=== PATIENT | male | born 1975 | race Caucasian/White ===

== ENCOUNTER 2023-12-18 09:08 | Emergency (ER) | payer SELFPAY ==
[2023-12-18 09:15] VITALS: BP 138/99
[2023-12-18 09:50] VITALS: BMI 32.4
--- NOTE | 2023-12-18 10:13 | ED.GENMED ---
Addendum entered and electronically signed by Wm Minor PA-C 12/20/23 08:41:
Pulmonary Lyme test presumptively positive. Sent prescription for the cyclin 100 mg twice a day for 3 weeks to his pharmacy. Relayed this information to the patient.
Original Note:
History of Present Illness
General
Chief Complaint: Facial Problem
Source: patient
Time Seen by Provider: 12/18/23 10:03
History of Present Illness
History of Present Illness:
48-year-old male presents with a weeks worth of progressively worsening numbness and dysfunction to the left side of his face. He notes he can close his eye raise his eyebrow. He feels that his left side of his face is numb. This was preceded by
little behind the ear. He denies rash. He denies any tick bites. No fever or headache. No arm or leg dysfunction. No other complaints at this time
Past History
Past History
ED Past Medical History: Psychiatric; Negative Asthma, HTN, Hypercholesterolemia or NIDDM
ED Past Surgical History: Other ([place] teeth)
Social History
Tobacco: Smoker
Alcohol: Occasional
Drug: Marijuana (Occasionally)
Personal:
Living: with family
Employment: Employed (Construction)
Family History
Family History: Other (Noncontributory)
Phy Exam
Physical Exam
Physical Exam:
General: Well-appearing male no acute respiratory distress
HEENT: Normocephalic face is asymmetric. There is a left facial droop. He is unable to wrinkle the forehead on the left nor is he able to close the eye on the left. Pupils equal round reactive to light tongue is symmetric no rash noted
Neurologic exam: As above normal gait conversing appropriately good strength to the upper and lower extremities
Heart: Regular rate and rhythm no murmurs
Lungs: Clear no wheeze
Skin is warm no rash
Course
Orders/Labs/Results
Orders:
Orders
12/18/23 10:16
Prednisone [Deltasone] 50 mg PO NOW STA
12/18/23 10:45
Complete Blood Count/With Diff Urgent
Comprehensive Metabolic Panel Urgent
Lyme Progressive Urgent
Abnormal Lab Results
12/18/23
10:45
MCH 31.4 H pg
(27.0-31.0)
MPV 10.5 H fL
(7.4-10.4)
Absolute Monos (auto) 0.7 H 10^3/uL
(0.1-0.6)
Lymphocytes % 20.0 L %
(20.5-51.1)
Glucose 113 H mg/dl
(70-99)
ALT 57 H U/L
(0-50)
12/18/23 10:45
12/18/23 10:45
Vital Signs
Initial and Last Documented VS:
Initial Vital Signs
Temp Pulse Resp BP Pulse Ox
98.7 F 73 18 138/99 96
12/18/23 09:15 12/18/23 09:15 12/18/23 09:15 12/18/23 09:15 12/18/23 09:15
Last Documented Vital Signs
Temp Pulse Resp BP Pulse Ox
98.7 F 73 18 138/99 96
12/18/23 09:15 12/18/23 09:15 12/18/23 09:15 12/18/23 09:15 12/18/23 09:15
MDM/Problems Addressed
Differential Diagnosis Includes:
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 Do not suspect CVA. Considered imaging but not indicated at this time. Will check for Lyme. Check basic labs. Will start on steroids and antiviral medicines pending Lyme
titer. Recommend rewetting drops as well.
*Critical Care Note
Total Time (30-74mins, 75-104mins- exclusive of procedures): Not Applicable
Update Note
Update Note:
Labs reviewed without significant finding. Will treat with antiviral medicine and prednisone to treat Larson's palsy. Lyme test is pending.
ED Attending Note
-
Portions of this chart may have been created with voice recognition software.� Occasional wrong word or��sound alike� substitutions may have occurred due to the inherent limitations of voice recognition software.
Discharge Plan
Departure
Patient Disposition: Home (Routine Discharge)
Date of Disposition: 12/18/23
Time of Disposition: 11:47
Patient with high blood pressure during this ER visit?: No
Discharge Problem:
Larson's palsy
Instructions: Larson's Palsy (DC)
Prescriptions:
New
valacyclovir [Valtrex] 1 gram tablet
1,000 mg PO Q8H Qty: 21 0RF
prednisone 20 mg tablet
60 mg PO DAILY Qty: 21 0RF
No Action
ibuprofen 200 MG tablet
1,000 mg PO ONCE
hydrocodone-acetaminophen [Drasco] 1 EACH tablet
1 ea PO Q4HPRN PRN (Reason: pain) Qty: 15 0RF
Referrals:
Jose Camacho I., DO [Family Provider] -
Activity Restrictions/Additional Instructions:
Use rewetting drops [id number] to keep your eye moist. Take steroid as directed. Use antiviral medicine as directed. You should receive a call if your Lyme test is positive.
Interventions
Interventions:
*Risk Screen - Suicide Last Done: 12/18/23 09:15
*General Assessment Last Done: 12/18/23 09:15
*Neglect/Abuse Screening Last Done: 12/18/23 09:15
ED- Fall Risk Assessment Last Done: 12/18/23 09:53
*ED COVID-19 Vaccine History Last Done: 12/18/23 09:53
ED- Neurological Assessment Last Done: 12/18/23 09:53
ED-Skin Assessment Last Done: 12/18/23 09:53
Discharge Date and Time
Print Language: ITALIAN
[2023-12-18] MEDS: DELTASONE 50 MG PO (10:39)
[2023-12-18 10:58] LABS: % Basophils 0.8 % (0-2); % Eosinophils 1.8 % (0-6); % Immature Granulocytes 0.4 % (0-0.5); % Monocytes 8.1 % (1.7-9.3); % Neutrophils 68.9 % (42.2-75.2); Absolute Basophils 0.1 10^3/uL (0-0.2); Absolute Eosinophils 0.2 10^3/uL (0-0.7); Absolute Lymphocytes 1.8 10^3/uL (1.2-3.4); Absolute Monocytes 0.7 10^3/uL (0.1-0.6); Absolute Neutrophils 6.2 10^3/uL (1.4-6.5); Hematocrit 44.9 % (39.0-52.0); Hemoglobin 15.4 g/dL (13.0-18.0); Mean Corp Hgb Conc. 34.3 g/dL (33.0-37.0); Mean Corpuscular Hgb 31.4 pg (27.0-31.0); Mean Corpuscular Volume 91.6 fL (80.0-94.0); Mean Platelet Volume 10.5 fL (7.4-10.4); Nucleated Red Blood Cells % 0 % (-); Platelet Count 225 10^3/uL (130-400); Red Cell Dist. Width 13.4 % (11.5-14.5)
[2023-12-18 11:09] LABS: ALT (SGPT) 57 U/L (0-50); AST (SGOT) 51 U/L (17-59); Albumin 4.7 g/dl (3.5-5.0); Alkaline Phosphatase 77 U/L (38-126); Blood Urea Nitrogen 14 mg/dl (9-20); Calcium 9.9 mg/dl (8.4-10.2); Carbon Dioxide 23 mmol/L (22-30); Chloride 106 mmol/L (98-107); Estimated Creatinine Clearance > 125 ml/min; Glucose 113 mg/dl (70-99); Potassium 4.7 mmol/L (3.5-5.1); Sodium 144 mmol/L (135-145); Total Bilirubin 0.7 mg/dl (0.2-1.3); Total Protein 7.5 g/dl (6.3-8.2); eGFR > 60.00
[2023-12-18 12:14] VITALS: BP 136/74
[2023-12-19 15:09] LABS: Lyme Antibody Screen, EIA Presump. Positive (Negative)
[2023-12-22 16:21] LABS: Lyme Ab Western Blot IgG Positive (Negative); Lyme Ab Western Blot IgM Negative (Negative)
== END 2023-12-18 12:17 | disposition home or self-care (01) ==
LOC: EMR 09:08
PROVIDERS: Physician Assistant; EMERGENCY PHYSICIAN Emergency Medicine; FAMILY PHYSICIAN Internal Medicine
DX: G51.0 Bell's palsy (principal); A69.20 Lyme disease, unspecified; F17.200 Nicotine dependence, unspecified, uncomplicated
CPT/HCPCS: 99283; 80053; 85025; 86617; 86618

== ENCOUNTER 2025-03-19 13:21 | Inpatient (IN) | payer OTHER, SELFPAY ==
[2025-03-19 10:05] VITALS: BP 155/97
[2025-03-19 10:40] LABS: Hematocrit 43.8 % (39.0-52.0); Hemoglobin 14.5 g/dL (13.0-18.0); Mean Corp Hgb Conc. 33.1 g/dL (33.0-37.0); Mean Corpuscular Volume 91.6 fL (80.0-94.0); Nucleated Red Blood Cells % 0 % (-); Platelet Count 261 10^3/uL (130-400); Red Cell Dist. Width 13.8 % (11.5-14.5)
[2025-03-19 11:01] LABS: ALT (SGPT) 20 U/L (0-50); AST (SGOT) 20 U/L (17-59); Albumin 4.2 g/dl (3.5-5.0); Alkaline Phosphatase 86 U/L (38-126); Blood Urea Nitrogen 13 mg/dl (9-20); Calcium 9.1 mg/dl (8.4-10.2); Carbon Dioxide 25 mmol/L (22-30); Chloride 104 mmol/L (98-107); Glucose 155 mg/dl (70-99); Potassium 4.7 mmol/L (3.5-5.1); Sodium 136 mmol/L (135-145); Total Protein 7.1 g/dl (6.3-8.2); eGFR > 60.00
--- NOTE | 2025-03-19 11:37 | ED.GENMED ---
History of Present Illness
General
Chief Complaint: Wound Check/Suture Removal
Source: patient
Time Seen by Provider: 03/19/25 10:49
History of Present Illness
History of Present Illness:
49-year-old male who states that a few months ago he had an open area at his right great toe, was on a fishing ship, and jumped into the water. Thereafter, he developed an infection at the right great toe which has been somewhat persistent. He saw
his primary care doctor was prescribed antibiotics which she was compliant with. He then saw the vocational aide who performed cultures. He was not continued on and a. He admits that he did not follow-up with the vocational aide and notes that the area of
infection is not healing. 5 days ago he noticed swelling in the area and last night developed fever and chills associated with a warm feeling of heat at the right great toe. Today he no longer has a fever but notes swelling pain and redness which
is new in the last 5 days. He has persistent drainage from this area. Patient denies other complaints and he is not a diabetic.
Past History
Past History
ED Past Medical History: Psychiatric; Negative Asthma, HTN, Hypercholesterolemia or NIDDM
ED Past Surgical History: Other ([place] teeth)
Social History
Tobacco: Smoker
Alcohol: Occasional
Drug: Marijuana (Occasionally)
Personal:
Living: with family
Employment: Employed (Construction)
Family History
Family History: Other (Noncontributory)
Phy Exam
Physical Exam
Physical Exam:
GENERAL: Alert , in no apparent distress
EYE: pupils equal and reactive
NECK: Supple, no significant adenopathy.
ENT: o/p clr, mmm.
CARDIAC: Regular rate and rhythm .
LUNGS: Clear breath sounds bilaterally, no acute respiratory distress, no wheezes/rales/rhonchi
ABDOMEN: Soft, without focal tenderness, no r/g, no cvat
NEUROLOGICAL: Alert and oriented, no focal neuro deficits
SKIN: Warm and dry, circular open wound noted plantr aspect R great toe that is wet but not actively draining, probed to the level of deep soft tissue but not bone. There is surrounding edema and erythema and warmth extending to the dorsal aspect
of the great toe and to the midfoot area, no crepitus, no blistering
MUSCULOSKELETAL: mild sts edema R foot, well perfused.
PSYCH: Normal and appropriate interaction.
Course
Orders/Labs/Results
Orders:
Orders
03/19/25 10:28
Complete Blood Count/With Diff Urgent
Comprehensive Metabolic Panel Urgent
Glycohemoglobin (HgbA1c) Urgent
03/19/25 11:30
Foot, Right 3 View [CR Foot - Right Min 3 Views] Urgent
Comment:
Reason For Exam: INFECTION, GREAT TOE
03/19/25 11:43
CRP [C-Reactive Protein] Urgent
ESR [Erythrocyte Sed Rate] Urgent
Lactic Acid Q4H
Comment: CANCEL 2nd LACTIC ACID IF 1st LACTIC ACID IS LESS THAN 2
Blood Culture Q30M
MARIA LUISA Source: Blood/Venous
Specimen Description:
Blood Culture Q30M
MARIA LUISA Source: Blood/Venous
Specimen Description:
Wound Culture [Wound/Abscess/Other Culture] Urgent
MARIA LUISA Source: Foot
Specimen Description: Right
Date Specimen was Collected: 03/19/25
Time Specimen was Collected: 11:41
03/19/25 11:56
Piperacillin/Tazo 3.375 Gram [Zosyn] 3.375 gram in 50 ml IV NOW
03/19/25 12:08
Vancomycin [Vancocin] 2,000 mg 0.9% Sodium Chloride 500 ml [Nss] 500 ml IV NOW
03/19/25 12:47
Admit/Transfer Patient As Directed
Co-Sign Provider:
Level of Care: Inpatient admission
Assign to:: Medical/Surgical
Physician / Group: veldand, udaybhanu
Diagnosis: right great toe cellulitis with open callous plantar toe
Reason for Hospitalization: right great toe cellulitis with open callous plantar toe
Expected length of stay greater than two midnights?: Yes
ELOS- Estimated Length of Stay in days: 3
I certify the patient meets the requirements for IP care: Yes
Code Status As Directed
Resuscitation Status: Full Code
03/19/25 12:49
PRN Pain Medication Management As Directed
May give lesser potent ordered pain med per pt: Yes
preference::
Protocol:: Medication orders for pain may be administered in a
manner that supports deferring to patient preference
when the pt is:
- Requesting an ordered lesser potent pain medication.
Least to most potent pain medications are defined
as: acetaminophen < NSAID < tramadol < opioids
(morphine, oxycodone, hydromorphone).
- Requesting a lesser dose of the same medication IF
ORDERED.
- Requesting a less intrusive route of administration
if both routes are prescribed by the provider (PO <
IV).
03/19/25 12:52
Add On- LAB Urgent
Tests Added?: [id number]
03/19/25 13:51
Acetaminophen [Tylenol] 650 mg PO Q4HPRN PRN
VANCOMYCIN Pharmacy to Dose [VANCOCIN Pharmacy to Dose] 1 each Pharmacy To Prepare [Call Pharmacy To Prepare] 0 ml IV PER PROTOCOL
03/19/25 13:51
WOUND/OSTOMY CONSULT Routine
Reason for Consult: right great toe plantar open wound/ cellulitis
Activity As Directed
Activity Level: As Tolerated
Vital Signs As Directed
Frequency: Per unit guidelines
Pt Eval And Treat Routine
Activity Level: As Tolerated
DX Deep Vein Thrombosis Video Routine
03/19/25 Dinner
1800 calorie (15 carb) Diabetic
At Your Request: Full Participation
Does patient need a safe tray?: No
03/19/25 18:00
Enoxaparin Sodium [Lovenox] 40 mg SC QPM
Piperacillin/Tazo 3.375 Gram [Zosyn] 3.375 gram in 50 ml IV Q6H
03/19/25 22:00
Quetiapine Fumarate [Seroquel] 50 mg PO HS
03/20/25 07:48
Complete Blood Count/With Diff IN AM
Comprehensive Metabolic Panel IN AM
03/20/25 08:00
Lamotrigine [Lamictal] 150 mg PO DAILY
Sertraline HCl [Zoloft] 50 mg PO DAILY
03/21/25 07:47
Complete Blood Count/With Diff IN AM
Comprehensive Metabolic Panel IN AM
Abnormal Lab Results
03/19/25 03/19/25
10:28 11:43
Absolute Monos (auto) 0.8 H 10^3/uL
(0.1-0.6)
Lymphocytes % 17.9 L %
(20.5-51.1)
Glucose 155 H mg/dl
(70-99)
Hemoglobin A1c 6.1 H %
(4.0-5.9)
C-Reactive Protein 49.30 H mg/L
(0.0-10.00)
03/19/25 10:28
03/19/25 10:28
Vital Signs
Initial and Last Documented VS:
Initial Vital Signs
Temp Pulse Resp BP Pulse Ox
98.9 F 82 18 155/97 97
03/19/25 10:05 03/19/25 10:05 03/19/25 10:05 03/19/25 10:05 03/19/25 10:05
Last Documented Vital Signs
Temp Pulse Resp BP Pulse Ox
98.5 F 58 16 143/90 96
03/24/25 11:00 03/24/25 11:00 03/24/25 11:00 03/24/25 11:00 03/24/25 11:00
*Pulse Oximetry
SaO2: 97
Oxygen Mode of Delivery: Room air
Patient hypoxic: no
*Critical Care Note
Total Time (30-74mins, 75-104mins- exclusive of procedures): Not Applicable
Update Note
Update Note:
Patient presents to the Emergency Department with _right toe pain and swelling
Number and Complexity of Problems Addressed at the Encounter
� Chronic conditions affecting care:
� Acute Exacerbation and/or Progression of Chronic Illness:
� Differential Diagnosis includes: But not limited to cellulitis, osteomyelitis, lymphangitis, septic arthritis, etc. etc.
Amount and/or Complexity of Data to be Reviewed and Analyzed
� I performed an independent evaluation of and my interpretation is:
EKG:
CT:
Xrays:
Laboratory Studies:
Other:
� Review of other/old records reveals:
� Clinical information was obtained by an independent historian:
� Prescriptions/Medications Considered but not given:
� Further testing considered but not performed:
Risk of Complications and/or Morbidity or Mortality of Patient Management
� Social determinants of health affecting care:
� Discussion with other providers (PCP, Hospitalists, Consultants, etc):
� Escalation of care including admission/observation vs risk of discharge considered:
ED Attending Note
-
Portions of this chart may have been created with voice recognition software.� Occasional wrong word or��sound alike� substitutions may have occurred due to the inherent limitations of voice recognition software.
Discharge Plan
Departure
Patient Disposition: Admit
Date of Disposition: 03/19/25
Time of Disposition: 11:59
Admit to: Med/Surg
Presentation/result/management discussed w/ accepting MD/DO: Hospitalist
Condition: Fair
Discharge Problem:
Cellulitis
Interventions
Interventions:
*General Assessment Last Done: 03/19/25 10:05
*Neglect/Abuse Screening Last Done: 03/19/25 10:05
*ED COVID-19 Vaccine History Last Done: 03/19/25 11:03
*ED Influenza Vaccine History Last Done: 03/19/25 11:03
[facility] Fall Risk Assessment Tool Last Done: 03/19/25 11:10
*Risk Screen - Suicide (C-SSRS) Last Done: 03/19/25 10:05
*Nursing Disposition Last Done: 03/19/25 13:54
ED-Skin Assessment Last Done: 03/19/25 11:03
Discharge Date and Time
Discharge Date/Time: 03/19/25 13:54
[2025-03-19 11:45] VITALS: BP 142/86
[2025-03-19] MEDS: ZOSYN 50 IV ×3 (12:00→22:28)
[2025-03-19] MEDS: VANCOCIN 540 MG IV (12:15)
--- NOTE | 2025-03-19 12:18 | HPS.HSE ---
Addendum entered and electronically signed by SIMONE Lopez 03/19/25 14:25:
Alcohol use disorder
- pt now telling nurse he drinks 3-4 drinks of vodka daily
- will start MSAS protocol
Addendum entered and electronically signed by Jose Antonio Olivera MD 03/19/25 14:05:
This is an addendum to H&P written by Lubna Almendarez on 03/19/2025. �Patient seen and examined independently with [facility] [facility] [facility].
49-year-old male past medical history of anxiety/depression, bipolar disorder, hypertension, hyperlipidemia, active smoker, marijuana user, alcohol use disorder, prediabetes, presenting with chronic callus of the right great toe for few months. �Few
months ago he jumped into a pond with subsequent infection of the right great toe. �He was prescribed doxycycline. �He followed up with Dr. Booker who performed wound culture. �5 days ago with redness and swelling and drainage. �He denies fevers
and chills.
Vital signs unremarkable.
Labs show CRP of 49.
Foot x-ray shows no radiographic findings suspicious for osteomyelitis. �Tiny hyperdensity along the skin surface of the great toe.
Patient with infected wound of the great great toe with surrounding cellulitis. �Wound culture, blood cultures.� MRI foot. Vancomycin/Zosyn. �Podiatry consulted. �Wound care consulted.
Original Note:
Family Physician
-
Family Physician: Asuncion Joseph
Chief Complaint
-
Right great toe red swollen extending to lower foot, right plantar open wound with yellow drainage
History of Present Illness
49-year-old male who reports had an open callus on his plantar right toe for many many months which he shaves off. He was on a fishing trip in the [facility] where there was a pond that he jumped into, he then developed an infection to the right great
toe for which his PCP prescribed 7 days of doxycycline that he finished. He did follow-up with podiatry Dr. Booker who performed cultures but did not follow-up after that. He did have lab work the week of 02 March was told he was prediabetic
but not put on any medication. He also did not want to take any medication for high blood pressure or high cholesterol. He is complaining of increased swelling over the past 5 days with development of fever, chills, warmth to the right great toe
since yesterday plus persistent drainage from the open wound. He has past medical history of active smoker, occasional marijuana, HTN, HLD, renal calculi, anxiety/depression, bipolar disorder
Medical History
Past Medical History
Past Medical History: Reports Other
Additional Past Medical History:
active smoker
occasional marijuana
HTN
HLD
renal calculi
anxiety/depression
bipolar disorder
Alcohol use disorder
Past Surgical History: Reports Other
Additional Past Surgical History:
Left knee scope
[place] teeth extraction
Social History
Tobacco: Smoker (1 pack a day)
Alcohol: Daily (2 cocktails during the week 3-4 on the weekends)
Drug: Marijuana
Living: With Family
Employment: Employed (pack worker supervisor)
Family History
Family History: Not pertinent
Allergies / Home Medications
Allergies reflects when Allergies were last updated in [employer].
Home Medications with original date entered in [employer]
Allergy/Medication List:
Allergies
Allergy/AdvReac Type Severity Reaction Status Date / Time
No Known Allergies Allergy Verified 12/18/23 09:15
Home Medications
lamotrigine 150 mg tablet 150 mg PO DAILY Neurological Condition 03/19/25
naproxen sodium 220 mg tablet (Aleve) 220 mg PO BID PRN mild pain 03/19/25
quetiapine 50 mg tablet 50 mg PO HS Neurological Condition 03/19/25
sertraline 50 mg tablet 50 mg PO DAILY Mental Health 03/19/25
Review of Systems
-
History Source: Patient
A 12 point ROS was completed and negative except as noted: Yes
Constitutional: Denies Fever or Chills
EENT: Denies Sore Throat or Runny Nose
Respiratory: Denies Cough or Trouble Breathing
Cardiac: Denies Chest Pain, Diaphoresis, Palpitations or Syncope
Abdomen/GI: Denies Abdominal Pain, Nausea, Vomiting, Diarrhea or Constipated
: Denies Dysuria, Frequency, Flank Pain or Incontinence
Musculoskeletal: Reports Joint Pain (Right great toe), Joint Swelling (Right great toe) and Other (Right great toe plantar wound/callus draining yellow in color)
Skin: Denies Itching or Rash
Neurological: Denies Dizzy or Headache
Endocrine: Reports No Symptoms
Hematologic/Lymphatic: Reports No Symptoms
Psych: Reports Calm
Physical Exam
Vital Signs
Vital Signs
Temp Pulse Resp BP Pulse Ox
98.9 F 82 18 142/86 93
03/19/25 10:05 03/19/25 10:05 03/19/25 10:05 03/19/25 11:45 03/19/25 11:46
Physical Exam
General: Pain; No Fever or Chills
HEENT: NormoCephalic, Anicteric, Moist mucous membranes, PERRLA, [place] Conjunctivae and No Ptosis
Respiratory: Clear; No Wheezes, Rales or Rhonchi
Cardiac: S1/S2 and Regular Rhythm; No Murmur, Rub, Gallop or Peripheral Edema
GI: Soft, Non Tender, Non Distended, Normal Bowel Sounds and No Hepatosplenomegaly
Rectal: Deferred by Provider
Genito-urinary: Deferred by me
Musculoskeletal: No Clubbing, No Cyanosis and Edema, Right Lower Extremity (Right great toe plantar wound/callus draining yellow in color with surrounding circumferential erythema and swelling extending onto lower dorsal foot); No Edema, Left Upper
Extremity, Edema, Right Upper Extremity or Edema, Left Lower Extremity
Skin: Warm and Dry
Neuro: AO x 3, No Motor Deficits, Nonfocal/grossly intact, Cranial Nerves Intact and No Sensory Deficits; No Slurred Speech, Facial Droop, Tremors or Sedated
Psych: Calm
Laboratory Results
-
03/19/25 10:28
03/19/25 10:28
Laboratory Results
Total Bilirubin 0.6 mg/dl (0.2-1.3) 03/19/25 10:28
AST 20 U/L (17-59) 03/19/25 10:28
ALT 20 U/L (0-50) 03/19/25 10:28
Alkaline Phosphatase 86 U/L (38-126) 03/19/25 10:28
Data Reviewed
-
Diagnostic Radiology: Report Reviewed by me
Lab Data: Labs Reviewed by me
Impression/Plan
-
Impression/plan:
Admit to MedSurg
#Cellulitis right great toe with open plantar callus to the distal phalanx and at top of DIP joint
Completed course of doxycycline week of 02 March by PCP [address] Dr. Booker who performed cultures but did not follow-up
-Obtain wound culture
- Check CRP, ESR, lactic acid
- IV vancomycin IV Zosyn
- Follow CBC, BMP
- Consult wound care
- Foot x-ray negative
-MRI right foot
- Consult podiatry
#Recent history of prediabetes per patient
Patient unsure A1c
Will check hemoglobin A1c
#Anxiety/depression/ Bipolar disorder
- Continue Lamictal 150 mg daily, Seroquel 50 mg at bedtime, Zoloft 50 mg daily
#Active smoker
#occasional marijuana
1 pack a day x 35 years
- Cessation advised
#HTN
BP 142/86
Patient did not want to take any blood pressure medication outpatient
# HLD
Patient states labs were borderline he refused medication
#Alcohol use disorder
Patient drinks 2 cocktails each night then 3-4 on the weekend days
#Renal calculi hx
DVT prophylaxis
Subcu Lovenox
Full code
[2025-03-19 12:40] LABS: C-Reactive Protein 49.30 mg/L (0.0-10.00)
--- NOTE | 2025-03-19 13:52 | CM ---
Chart reviewed and spoke with pt at ED bedside
Lives with Aida GF at [address]
Independent
no DME
PCP [facility] in [place]
no HP nor RX plan
[facility] emailed
CM discussed Ana M Nikhil and dario with pt and provided info to follow up
no hx of VN nor SNF
DCP is to go home
CM will continue to follow up for any dcp needs
[2025-03-19 14:02] VITALS: BP 147/101
--- NOTE | 2025-03-19 14:16 | PHA.VAN.IN ---
Assessment
- Assessment
Renal Function: Appears similar to baseline
Maximum Temperature: 98.9
Concomitant Antimicrobials: piperacillin-tazobactam
AUC Dosing Plan
- Dosing Variables
Dosing Weight (kg): 111
Dosing CrCl (ml/min): 100
Vd coefficient (L/kg): 0.6
- Empiric Dosing
Initial / Loading Dose: vancomycin 2000 mg x 1
Maintenance Regimen: vancomycin 1250 mg Q12H
Estimated AUC (mcg*h/mL): 458
Estimated Peak (mcg*h/mL): 28.9
Estimated Trough (mcg/ml): 11.5
Estimated Half Life (H): 7.9
Plan
- Plan
Monitoring: consider levels in next few days
Pharmacokinetics Vancomycin I
- -
Patient Age: 49
Patient Sex: Male
Vancomycin Day #: 1
Indication: Bone And Joint
Pertinent Antimicrobial Allergies:
NKDA
Height / Weight:
Height 6 ft 1 in
Actual Weight 111 kg
IBW in k.9
Adjusted BW in k.3
Pertinent Past Medical History: infected wound of the great toe
- Vital Signs / Lab Results
Temp Pulse Resp BP Pulse Ox
98.4 F 60 18 147/101 95
03/19/25 14:02 03/19/25 14:02 03/19/25 14:02 03/19/25 14:02 03/19/25 14:02
Lab Results - Hematology
03/19/25
10:28
WBC 9.2
Lab Results - Chemistry
03/19/25
10:28
BUN 13
Creatinine 0.8
Albumin 4.2
03/19/25 03/19/25
11:43 15:45
Lactic Acid 0.9 Cancelled
Microbiology Results
03/19/25 11:43 Gram Stain - Preliminary
Foot - Right
--- NOTE | 2025-03-19 14:34 | WOUNDNOTE ---
RIGHT PLANTAR GREAT TOE
--- NOTE | 2025-03-19 14:35 | WOUNDNOTE ---
RIGHT GREAT TOE
--- NOTE | 2025-03-19 14:36 | WOUNDNOTE ---
RIGHT GREAT TOE
[2025-03-19 14:37] LABS: Glycohemoglobin (HgbA1c) 6.1 % (4.0-5.9)
--- NOTE | 2025-03-19 14:42 | WOUNDNOTE ---
[facility] RN note: Patient admitted with diabetic ulcer to right great toe.
See H&P for complete history.
PMH: anxiety/depression, bipolar disorder, hypertension, hyperlipidemia, active smoker, marijuana user, alcohol use disorder, prediabetes
Wound Location and type/assessment: Patient admitted with infected right great toe diabetic ulcer. Please see worklist for measurement and description of wound. Right toe with erythema. Pictures TT to Dr. Booker who said he will follow up with
patient. Heels and sacrum intact. Patient is ambulatory and independent with all ADL's.
Appetite: Good
Pressure redistribution devices in place: Versa Care Air
Plan: Wound was cleaned and alginate and border foam placed on wound. Awaiting podiatry consult.
Will confirm orders with hospitalist and update nurse. Updated care plan and will follow as needed.
Note to case management of equipment requested for discharge:
Recommend follow up at wound care center upon discharge.
[2025-03-19 14:46] LABS: Glucose - Point of Care 102 mg/dl (70-99)
[2025-03-19 14:54] LABS: INR 1.04; PT 13.7 Sec (11.4-14.6)
[2025-03-19 14:55] LABS: APTT 30.3 Sec (23.4-35.0); GGTP 87 U/L (15-73); Magnesium 2.2 mg/dl (1.6-2.3)
--- NOTE | 2025-03-19 15:05 | PTCARENOTE ---
pt presents from ED via stretcher. pt is AAO*3, room air. independent in the room. pt c/o mild pain tolerable at this time. R toe wound w/ drainage cleaned and dressed. pt oriented to the room. call cole within the reach. plan of care ongoing.
[2025-03-19 15:22] VITALS: BP 147/90
--- NOTE | 2025-03-19 15:38 | PTOTSP ---
Chart reviewed, spoke with the patient. Patient reports he has remained independent despite the infection in his great toe, no changes in mobility or balance. Patient is agreeable to PT signing off at this time and is aware our services are
available if needed or if he has any procedures on his foot which would affect his mobility. PT will sign off at this time.
[2025-03-19 15:49] LABS: Urine Character Clear (Clear)
[2025-03-19 15:56] LABS: Urine Red Blood Cell 0-2 /HPF (0-2); Urine Squamous Cell 0-2 /LPF (Few)
[2025-03-19 15:57] LABS: Urine White Cell 0-2 /HPF (0-5)
[2025-03-19] MEDS: THIAMINE INJECTION 200 MG IV ×2 (16:41→22:29)
[2025-03-19 17:11] LABS: Glucose - Point of Care 133 mg/dl (70-99)
[2025-03-19] MEDS: LOVENOX 40 MG SC (17:13)
--- NOTE | 2025-03-19 18:48 | W.PN.UPDATE ---
Update Note
Progress Note Update
49M Right hallux wound with cellulitis and concern for OM
- MRI to dictate plan.
- Discussed with patient concern for OM and treatment options including long course IV abx vs amputation, as well as risks and benefits of each
-Heel WB in Darco Wedge surgical shoe
- elevate RLE while at rest
- LWC : betadine dsd, mariluz
- continue IV abx
- full consult note to follow
[2025-03-19] MEDS: VANCOCIN 275 MG IV (20:39)
[2025-03-19] MEDS: SEROQUEL 50 MG PO (20:40)
[2025-03-19 21:09] LABS: Glucose - Point of Care 103 mg/dl (70-99)
[2025-03-19 23:30] VITALS: BP 150/90
[2025-03-20] MEDS: ZOSYN 50 IV ×4 (05:00→22:31)
[2025-03-20] MEDS: VANCOCIN 275 MG IV ×2 (05:41→17:22)
[2025-03-20 07:08] VITALS: BP 137/89
[2025-03-20] MEDS: LAMICTAL 150 MG PO (08:11)
[2025-03-20] MEDS: FOLVITE 1 MG PO (08:12)
[2025-03-20] MEDS: ZOLOFT 50 MG PO (08:12)
[2025-03-20] MEDS: THIAMINE INJECTION 200 MG IV ×3 (08:12→22:32)
[2025-03-20 08:45] LABS: Hematocrit 42.8 % (39.0-52.0); Hemoglobin 14.3 g/dL (13.0-18.0); Mean Corp Hgb Conc. 33.4 g/dL (33.0-37.0); Mean Corpuscular Volume 91.3 fL (80.0-94.0); Nucleated Red Blood Cells % 0 % (-); Platelet Count 283 10^3/uL (130-400); Red Cell Dist. Width 13.7 % (11.5-14.5)
[2025-03-20 08:54] LABS: Glucose - Point of Care 113 mg/dl (70-99)
[2025-03-20 08:59] LABS: ALT (SGPT) 18 U/L (0-50); AST (SGOT) 20 U/L (17-59); Albumin 4.1 g/dl (3.5-5.0); Alkaline Phosphatase 78 U/L (38-126); Blood Urea Nitrogen 10 mg/dl (9-20); Calcium 9.6 mg/dl (8.4-10.2); Carbon Dioxide 26 mmol/L (22-30); Chloride 105 mmol/L (98-107); Estimated Creatinine Clearance > 125 ml/min; Glucose 101 mg/dl (70-99); Potassium 4.9 mmol/L (3.5-5.1); Sodium 136 mmol/L (135-145); Total Protein 7.2 g/dl (6.3-8.2); eGFR > 60.00
--- NOTE | 2025-03-20 09:10 | PHA.VAN.FU ---
Vancomycin Assessment / Plan
- Assessment
Renal Function: Stable
WBC's are: WNL
In the past 24 hrs, patient has been: Afebrile
Concomitant Antimicrobials: ZOSYN
- Dosing Plan
Continue: 1250MG Q12H
- Monitoring Plan
No level(s) ordered at this time: CONSIDER FOR SATURDAY/SATURDAY
- Follow Up
Pharmacy will continue to follow.
Vancomycin Follow UP
- -
Patient Age: 49
Patient Sex: Male
Vancomycin Day #: 2
Indication: Bone And Joint
Pertinent Antimicrobial Allergies:
NKDA
Height / Weight:
Height 6 ft 1 in
Actual Weight 111 kg
IBW in k.9
Adjusted BW in k.3
Pertinent Past Medical History: infected wound of the great toe
- Vital Signs / Lab Results
Temp Pulse Resp BP Pulse Ox
98.5 F 61 18 137/89 98
03/20/25 07:08 03/20/25 07:08 03/20/25 07:08 03/20/25 07:08 03/20/25 07:08
Lab Results - Hematology
03/19/25 03/20/25
10:28 07:48
WBC 9.2 8.6
Lab Results - Chemistry
03/19/25 03/20/25
10:28 07:48
BUN 13 10
Creatinine 0.8 0.9
Estimated Creat Clear > 125
Albumin 4.2 4.1
03/19/25 03/19/25
11:43 15:45
Lactic Acid 0.9 Cancelled
Lab Results - Urine
03/19/25
15:32
Urine Nitrite Negative
Ur Leukocyte Esterase Negative
Urine WBC 0-2
Ur Squamous Epith Cells 0-2
Microbiology Results
03/19/25 11:43 Gram Stain - Preliminary
Foot - Right
[2025-03-20 12:30] LABS: Glucose - Point of Care 98 mg/dl (70-99)
--- NOTE | 2025-03-20 14:36 | W.PN.HOSP.TC ---
Today's Communication/Plan
-
see note
Assessment / Plan
Assessment / Plan
1. Right foot great toe cellulitis/soft tissue infection -patient apparently had an open wound and went swimming in pond earlier in the month. was seen by podiatry and concern for osteomyelitis. Foot x-ray did not show any bone changes. MRI foot
has been ordered and pending. Currently on empiric vancomycin and Zosyn. Podiatry possibly considering toe amputation based on MRI findings
2. Prediabetes -hemoglobin A1c 6. Has been diagnosed earlier in the month, patient motivated to control blood glucose. Diabetes education ordered. BG in 90-150 range currently.
3. Rule out peripheral arterial disease -patient is active smoker. Good left dorsalis pedis/posterior tibialis. Decreased right dorsalis pedis/difficult to palpate posterior tibialis. Arterial Doppler/ROSEMARIE ordered
4. Tobacco use -smokes 1 pack a day. Nicotine patch/gums ordered
5. Alcohol use disorder -3-4 alcohol drinks every day. Last drink day before admission night. MSAS/Ativan protocol ordered
6. Marijuana use -urine drug screen positive.
7. Mood disorder/bipolar? disorder -patient very pleasant no behavioral issues reported. Maintain on home dose of Lamictal/Seroquel/sertraline.
Full code
Anticipated Discharge: > 48 hours
Subjective/Interval History
-
Date of Service: March 20, 2025
denies of pain in the toe
afebrile overnight
no other issues reported
Objective Data
-
Labs:
Laboratory Results
03/20/25
07:48
WBC 8.6
Hgb 14.3
Hct 42.8
Plt Count 283
Sodium 136
Potassium 4.9
Chloride 105
Carbon Dioxide 26
BUN 10
Creatinine 0.9
Glucose 101 H
Calcium 9.6
Total Bilirubin 0.9
AST 20
ALT 18
Alkaline Phosphatase 78
Vital Signs:
Vital Signs
Temp Pulse Resp BP Pulse Ox
98.5 F 61 18 137/89 98
03/20/25 07:08 03/20/25 07:08 03/20/25 07:08 03/20/25 07:08 03/20/25 11:03
I&O
03/19/25 03/20/25 03/21/25
06:59 06:59 06:59
Intake Total 1610 / 1610
Balance 1610 / 1610
Review of Systems
-
Respiratory: Reports No Symptoms
Cardiac: Reports No Symptoms
Abdomen/GI: Reports No Symptoms
Physical Exam
-
General: No Apparent Distress and Comfortable
HEENT: Negative Oxygen
Respiratory: Clear to Auscultation
Cardiac: Regular Rhythm and S1/S2; Negative Murmur or Rub
Musculoskeletal: Other (Right foot great toe dressing in place)
Neuro: Awake, Alert, Oriented, No Motor Deficits and Nonfocal/Grossly Intact
Psych: Calm
[2025-03-20 15:14] VITALS: BP 154/89
--- NOTE | 2025-03-20 16:45 | CM ---
CM consult for substance abuse: Pt states he is aware of resources for alcohol cessation and declined BCARES
Currently on IV ABX
Plan: Will follow for DC needs
[2025-03-20 16:52] LABS: Glucose - Point of Care 159 mg/dl (70-99)
[2025-03-20] MEDS: LOVENOX 40 MG SC (17:05)
[2025-03-20] MEDS: SEROQUEL 50 MG PO (20:33)
[2025-03-20 21:15] LABS: Glucose - Point of Care 94 mg/dl (70-99)
[2025-03-20 23:05] VITALS: BP 131/85
[2025-03-21] MEDS: ZOSYN 50 IV ×4 (05:04→23:24)
[2025-03-21] MEDS: VANCOCIN 275 MG IV ×2 (05:53→17:43)
[2025-03-21 07:02] VITALS: BP 143/97
[2025-03-21 08:22] LABS: Hematocrit 44.3 % (39.0-52.0); Hemoglobin 14.3 g/dL (13.0-18.0); Mean Corp Hgb Conc. 32.3 g/dL (33.0-37.0); Mean Corpuscular Volume 90.8 fL (80.0-94.0); Nucleated Red Blood Cells % 0 % (-); Platelet Count 308 10^3/uL (130-400); Red Cell Dist. Width 13.6 % (11.5-14.5)
[2025-03-21 08:37] LABS: Glucose - Point of Care 118 mg/dl (70-99)
[2025-03-21 08:48] LABS: ALT (SGPT) 21 U/L (0-50); AST (SGOT) 23 U/L (17-59); Albumin 4.2 g/dl (3.5-5.0); Alkaline Phosphatase 73 U/L (38-126); Blood Urea Nitrogen 11 mg/dl (9-20); Calcium 9.5 mg/dl (8.4-10.2); Carbon Dioxide 22 mmol/L (22-30); Chloride 104 mmol/L (98-107); Estimated Creatinine Clearance 114 ml/min; Glucose 98 mg/dl (70-99); Potassium 4.8 mmol/L (3.5-5.1); Sodium 136 mmol/L (135-145); Total Protein 7.2 g/dl (6.3-8.2); eGFR > 60.00
--- NOTE | 2025-03-21 08:57 | PHA.VAN.FU ---
Vancomycin Assessment / Plan
- Assessment
Renal Function: Stable
WBC's are: WNL
In the past 24 hrs, patient has been: Afebrile
Concomitant Antimicrobials: ZOSYN
- Dosing Plan
Continue: 1250MG Q12H
- Monitoring Plan
Peak Level: 03/21 @2130
Trough Level: 03/22 @0530
- Follow Up
Pharmacy will continue to follow.
Vancomycin Follow UP
- -
Patient Age: 49
Patient Sex: Male
Vancomycin Day #: 3
Indication: Bone And Joint
Pertinent Antimicrobial Allergies:
NKDA
Height / Weight:
Height 6 ft 1 in
Actual Weight 111 kg
IBW in k.9
Adjusted BW in k.3
Pertinent Past Medical History: infected wound of the great toe
- Vital Signs / Lab Results
Temp Pulse Resp BP Pulse Ox
98.8 F 59 18 131/85 97
03/20/25 23:05 03/20/25 23:05 03/20/25 23:05 03/20/25 23:05 03/20/25 23:05
Lab Results - Hematology
03/19/25 03/20/25 03/21/25
10: 07:48 07:47
WBC 9.2 8.6 9.9
Lab Results - Chemistry
03/19/25 03/20/25 03/21/25
10:28 07:48 07:47
BUN 13 10 11
Creatinine 0.8 0.9 1.0
Estimated Creat Clear > 125 114
Albumin 4.2 4.1 4.2
03/19/25 03/19/25
11:43 15:45
Lactic Acid 0.9 Cancelled
Microbiology Results
03/19/25 11:43 Blood Culture - Preliminary
Blood/Venous No Growth in 24 hours- Final report to follow
03/19/25 11:43 Blood Culture - Preliminary
Blood/Venous No Growth in 24 hours- Final report to follow
03/19/25 11:43 Wound Culture - Preliminary
Foot - Right Gram Stain - Preliminary
[2025-03-21] MEDS: ZOLOFT 50 MG PO (09:12)
[2025-03-21] MEDS: FOLVITE 1 MG PO (09:12)
[2025-03-21] MEDS: LAMICTAL 150 MG PO (09:12)
[2025-03-21] MEDS: THIAMINE INJECTION 200 MG IV ×3 (09:12→23:24)
[2025-03-21 12:03] LABS: Glucose - Point of Care 119 mg/dl (70-99)
--- NOTE | 2025-03-21 14:54 | W.PN.HOSP.TC ---
Today's Communication/Plan
-
Pending MRI
Pending lower extremity arterial Doppler
Maintain empiric antibiotics
Assessment / Plan
Assessment / Plan
1. Right foot great toe cellulitis/soft tissue infection -patient apparently had an open wound and went swimming in pond earlier in the month. was seen by podiatry and concern for osteomyelitis. Foot x-ray did not show any bone changes. MRI foot
has been ordered and pending. Currently on empiric vancomycin and Zosyn. Podiatry possibly considering toe amputation based on MRI findings
2. Prediabetes -hemoglobin A1c 6. Has been diagnosed earlier in the month, patient motivated to control blood glucose. Diabetes education ordered. BG in 90-150 range currently.
3. Rule out peripheral arterial disease -patient is active smoker. Good left dorsalis pedis/posterior tibialis. Decreased right dorsalis pedis/difficult to palpate posterior tibialis. Arterial Doppler/ROSEMARIE ordered
4. Tobacco use -smokes 1 pack a day. Nicotine patch/gums ordered
5. Alcohol use disorder -3-4 alcohol drinks every day. Last drink day before admission night. MSAS/Ativan protocol ordered
6. Marijuana use -urine drug screen positive.
7. Mood disorder/bipolar? disorder -patient very pleasant no behavioral issues reported. Maintain on home dose of Lamictal/Seroquel/sertraline.
Full code
Anticipated Discharge: 24 - 48 hours
Subjective/Interval History
-
Date of Service: March 21, 2025
No new complaints overnight
Objective Data
-
Labs:
Laboratory Results
03/21/25
07:47
WBC 9.9
Hgb 14.3
Hct 44.3
Plt Count 308
Sodium 136
Potassium 4.8
Chloride 104
Carbon Dioxide 22
BUN 11
Creatinine 1.0
Glucose 98
Calcium 9.5
Total Bilirubin 0.8
AST 23
ALT 21
Alkaline Phosphatase 73
Vital Signs:
Vital Signs
Temp Pulse Resp BP Pulse Ox
98 F 59 16 143/97 97
03/21/25 07:02 03/21/25 07:02 03/21/25 07:02 03/21/25 07:02 03/21/25 09:15
I&O
03/20/25 03/21/25 03/22/25
06:59 06:59 06:59
Intake Total 1610 / 1610 2370 / 2370
Balance 1610 / 1610 2370 / 2370
Review of Systems
-
Respiratory: Reports No Symptoms
Cardiac: Reports No Symptoms
Abdomen/GI: Reports No Symptoms
Physical Exam
-
General: No Apparent Distress and Comfortable
HEENT: Negative Oxygen
Respiratory: Clear to Auscultation
Cardiac: Regular Rhythm and S1/S2; Negative Murmur or Rub
Musculoskeletal: Other (Right foot great toe dressing in place)
Neuro: Awake, Alert, Oriented, No Motor Deficits and Nonfocal/Grossly Intact
Psych: Calm
[2025-03-21 15:00] VITALS: BP 137/92
[2025-03-21 16:44] LABS: Glucose - Point of Care 148 mg/dl (70-99)
[2025-03-21] MEDS: LOVENOX 40 MG SC (17:06)
[2025-03-21 21:10] LABS: Glucose - Point of Care 110 mg/dl (70-99)
[2025-03-21] MEDS: SEROQUEL 50 MG PO (21:19)
[2025-03-21 23:00] VITALS: BP 137/81
[2025-03-22] MEDS: ZOSYN 50 IV ×4 (06:00→23:17)
[2025-03-22] MEDS: VANCOCIN 275 MG IV (06:31)
[2025-03-22 07:00] VITALS: BP 135/93
[2025-03-22 08:16] LABS: Glucose - Point of Care 116 mg/dl (70-99)
[2025-03-22] MEDS: ZOLOFT 50 MG PO (08:16)
[2025-03-22] MEDS: THIAMINE INJECTION 200 MG IV (08:16)
[2025-03-22] MEDS: LAMICTAL 150 MG PO (08:16)
[2025-03-22] MEDS: FOLVITE 1 MG PO (08:17)
--- NOTE | 2025-03-22 08:32 | PHA.VAN.FU ---
Vancomycin Assessment / Plan
- Assessment
Renal Function: Stable
WBC's are: WNL
In the past 24 hrs, patient has been: Afebrile
Concomitant Antimicrobials: piperacillin/tazobactam
- Assessment - Therapeutic Drug Monitoring
Extrapolated Cmax (mcg/mL): 18.2
Peak level was drawn: More than 3 hours after previous dose (Peak drawn late decreasing accuracy of calculations. Peak may be underestimated from true value which may lead to underestimation of AUC and overestimation of half-life)
Extrapolated Cmin (mcg/mL): 8.7
Trough Drawn: Appropriately
Levels were drawn: At steady state (drawn after 4th maintenance dose; however, patient may still have additional accumulation given weight > 100kg)
Calculated AUC (mcg*h/mL): 311
Calculated ke: 0.0703
Calculated half life (H): 9.9
Calculated Vd (L): 114 (~1 L/kg)
Calculated Vanc CL (ml/min): 134
- Dosing Plan
Adjust Regimen to: Vanc 1500mg Q12H
New Regimen Predicts: AUC (400), Peak (23), Trough (11)
Since peak was drawn late and patient may not fully be at steady state, will increase dose slightly
Regimen predicts AUC at lower end of goal AUC range to give buffer if has additional accumulation and/or if calculations underpredicted true AUC due to late peak
- Monitoring Plan
No level(s) ordered at this time: consider levels in next few days
- Follow Up
Pharmacy will continue to follow.
Vancomycin Follow UP
- -
Patient Age: 49
Patient Sex: Male
Vancomycin Day #: 4
Indication: Bone And Joint
Requesting Provider: Jose Almendarez
Pertinent Antimicrobial Allergies:
NKDA
Height / Weight:
Height 6 ft 1 in
Actual Weight 111 kg
IBW in k.9
Adjusted BW in k.3
Pertinent Past Medical History: BMI ~32
- Vital Signs / Lab Results
Temp Pulse Resp BP Pulse Ox
98.5 F 62 18 137/81 93
03/21/25 23:00 03/21/25 23:00 03/21/25 23:00 03/21/25 23:00 03/21/25 23:00
Lab Results - Hematology
03/19/25 03/20/25 03/21/25
10 07:48 07:47
WBC 9.2 8.6 9.9
Lab Results - Chemistry
03/19/25 03/20/25 03/21/25
07:48 07:47
BUN 13 10 11
Creatinine 0.8 0.9 1.0
Estimated Creat Clear > 125 114
Albumin 4.2 4.1 4.2
03/19/25 03/19/25
11:43 15:45
Lactic Acid 0.9 Cancelled
Microbiology Results
03/19/25 11:43 Wound Culture - Preliminary
Foot - Right Staphylococcus aureus
Gram negative bacilli
Haemophilus parainfluenzae
Gram Stain - Preliminary
03/19/25 11:43 Blood Culture - Preliminary
Blood/Venous No Growth in 48 hours- Final report to follow
03/19/25 11:43 Blood Culture - Preliminary
Blood/Venous No Growth in 48 hours- Final report to follow
Therapeutic Drug Monitoring
Vancomycin Peak 14.6 ug/ml (18-26) L 03/21/25 22:21
Vancomycin Trough 8.3 ug/ml (5-20) 03/22/25 06:23
--- NOTE | 2025-03-22 08:45 | W.PN.HOSP.TC ---
Today's Communication/Plan
-
await MRI
consult ID
Assessment / Plan
Assessment / Plan
Pt is a 49 year old male
Right foot great toe cellulitis/soft tissue infection--concern for osteomyelitis--MRI pending--wound culture with Staph aureus, gm neg bacilli, and H. flu---consult ID--apprec podiatry--patient apparently had an open wound and went swimming in pond
earlier in the month-- Currently on empiric vancomycin and Zosyn. Podiatry possibly considering toe amputation based on MRI findings
Prediabetes -hemoglobin A1c 6. Has been diagnosed earlier in the month, patient motivated to control blood glucose. Diabetes education ordered. BG in 90-150 range currently.
Rule out peripheral arterial disease -patient is active smoker. Good left dorsalis pedis/posterior tibialis. Decreased right dorsalis pedis/difficult to palpate posterior tibialis. Arterial Doppler/ROSEMARIE pending
Tobacco use -smokes 1 pack a day. Nicotine patch/gums ordered--needs to quit
Alcohol use disorder -3-4 alcohol drinks every day. Last drink day before admission night. MSAS/Ativan protocol ordered--no signs of DTs--needs to quit
Marijuana use -urine drug screen positive.
Mood disorder/bipolar? disorder -patient very pleasant no behavioral issues reported. Maintain on home dose of Lamictal/Seroquel/sertraline
DVT proph
code status--Full code
Anticipated Discharge: > 48 hours
Subjective/Interval History
-
Date of Service: March 22, 2025
pt without c/o--waiting for MRI
Objective Data
-
Vital Signs:
max temp for 24 hours
03/21/25
23:00
Temp 98.5 F
Vital Signs
Temp Pulse Resp BP Pulse Ox
98.5 F 62 18 137/81 93
03/21/25 23:00 03/21/25 23:00 03/21/25 23:00 03/21/25 23:00 03/21/25 23:00
I&O
03/21/25 03/22/25 03/23/25
06:59 06:59 06:59
Intake Total 2370 / 2370 580 / 580
Output Total 240 / 240
Balance 2370 / 2370 340 / 340
Review of Systems
-
All other systems: Reviewed and negative
Physical Exam
-
General: Well Developed, Well Nourished and No Apparent Distress
HEENT: Normocephalic and Atraumatic; Negative Oxygen
Respiratory: Clear to Auscultation; Negative Wheezes or Rhonchi
Cardiac: Regular Rhythm and S1/S2; Negative Murmur
GI: Soft, Nontender, Nondistended and Normal Bowel Sounds
Musculoskeletal: No Clubbing, No Cyanosis, No Edema and Other (right great toe wrapped with gauze--some redness to proximal metatarsal joint )
Neuro: Awake and Alert
--- NOTE | 2025-03-22 10:45 | CON.ID ---
Addendum entered and electronically signed by Chelsie Brito MD 03/22/25 12:51:
I personally performed a history and physical exam of the patient and discussed management with the resident. I reviewed the resident's note and agree with the documented findings and plan of care HPI/CC.
# Suspect osteomyelitis under plantar wound of R hallux
# Acute Right foot cellulitis
# Tobacco use disorder
# Prediabetes A1c 6.1
- MRI foot pending. If osteo, for toe amp per Podiatry.
- Wound swab; polymicrobial organisms including MSSA
- DC Vancomycin.
- Continue Zosyn for now.
- Discussed benefits of smoking cessation
Original Note:
Consultation
-
Date/Time Consultation Requested: 03/22/25
Date/Time Consultation Performed: 03/22/25
Requesting Provider: Dr. Vicki Marie
Performing Provider: Dr. Chelsie Brito
Reason for Consultation: Suspected osteomyelitis
Chief Complaint / Past History
Chief Complaint
Right toe cellulitits/soft tissue infection
History of Present Illness
49-year-old male past medical history of hypertension, hyperlipidemia, bipolar disorder, prediabetes presented to the ER on 03/19/25 with a chief complaint of right toe infection. 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
feet. A few months ago in September or October, he noticed a large callus on his right hallux and used a [employer] foot file to shave it down. That in combination with dry skin resulted in a crack. Over the next couple of months, the wound would reheal,
then crack again, reheal, and crack again. [place] weekend [place] , [facility] and [place]. About a week later, he noticed an increase redness and swelling around his toe. He saw his primary care
doctor and was prescribed a 7-day course of doxycycline and referred to podiatry. The erythema and swelling improved with the Doxy and got worse after he stopped taking it. He saw podiatry Dr. Booker and they took a wound culture. He was provided
wound care instructions however never followed up for further treatment because he does not have medical insurance. On , he started to feel weak with fever and chills. He initially thought it was the flu. On the , he noticed his
right toe got significantly worse with erythema spreading up with the dorsum of his feet and significant swelling. He came into the ER for further evaluation.
In the ED, right foot x-ray did not reveal any acute osteomyelitis. Wound cultures were taken, he was started on vancomycin and Zosyn and admitted for further evaluation. Podiatry was consulted and an MRI was ordered. Wound cultures from 03/19
revealed Staph aureus, gram-negative bacilli, haemophilus parainfluenza and infectious disease was consulted to comment on further antibiotic coverage.
Past History
Past Medical History: Other (Hypertension, hyperlipidemia, renal calculi, anxiety, depression, bipolar disorder, tobacco use disorder, smoking marijuana, alcohol use disorder, prediabetes)
Past Surgical History: Other
Additional Past Surgical History:
Left knee scope, wisdom teeth
Allergy History:
No Known Allergies Allergy (Verified 12/18/23 09:15)
Allergies
Allergy/AdvReac Type Severity Reaction Status Date / Time
No Known Allergies Allergy Verified 12/18/23 09:15
Home Medications
lamotrigine 150 mg tablet 150 mg PO DAILY Neurological Condition 03/19/25
naproxen sodium 220 mg tablet (Aleve) 220 mg PO BID PRN mild pain 03/19/25
quetiapine 50 mg tablet 50 mg PO HS Neurological Condition 03/19/25
sertraline 50 mg tablet 50 mg PO DAILY Mental Health 03/19/25
Social History
Tobacco: Smoker
Alcohol: Daily
Drug: Marijuana
Personal: Partner
Living: With Roomate
Employment: Employed (quarry worker )
Family History
Family History: Other (Father arrhythmia, hypertension)
Review of Systems
Review of Systems
Musculoskeletal: Other (Right toe pain, improved from prior)
All systems: All other systems were reviewed and were negative
Imaging:
Right foot x-ray 03/19/2025:
IMPRESSION:
1. No radiographic findings suspicious for osteomyelitis.
2. Tiny hyperdensity likely along the skin surface of the great toe as above. Less likely, this could be related to very small opaque foreign body.
Vital Signs
Temp Pulse Resp BP Pulse Ox
98.5 F 65 16 135/93 95
03/22/25 07:00 03/22/25 07:00 03/22/25 07:00 03/22/25 07:00 03/22/25 10:09
Physical Exam
Physical Exam
Constitutional: No Acute Distress and Comfortable
Head: Normocephalic
Cardiovascular: Regular Rate and S1/S2
Pulmonary: Clear
Gastrointestinal: Soft, Tender, Non Tender and Non Distended
Extremities: Other (Right toe wound bandages, erythema noted to extend over forefoot )
Skin: Warm and Dry
Neurological: AO x 3
Psychological: Calm
Lab / Diagnostic Study Results
03/21/25 07:47
03/21/25 07:47
Abs Immat Gran (auto) 0.0 10^3/uL (0-0.05) 03/21/25 07:47
Absolute Neuts (auto) 6.7 10^3/uL (1.4-6.5) H 03/21/25 07:47
Absolute Lymphs (auto) 1.8 10^3/uL (1.2-3.4) 03/21/25 07:47
Absolute Monos (auto) 1.0 10^3/uL (0.1-0.6) H 03/21/25 07:47
Absolute Basos (auto) 0.1 10^3/uL (0-0.2) 03/21/25 07:47
Immature Gran % 0.4 % (0-0.5) 03/21/25 07:47
Neutrophils % 68.0 % (42.2-75.2) 03/21/25 07:47
Lymphocytes % 17.9 % (20.5-51.1) L 03/21/25 07:47
Monocytes % 9.7 % (1.7-9.3) H 03/21/25 07:47
Eosinophils % 3.2 % (0-6) 03/21/25 07:47
Basophils % 0.8 % (0-2) 03/21/25 07:47
ESR 15 mm/hour (0-20) 03/19/25 11:43
PT 13.7 Sec (11.4-14.6) 03/19/25 14:35
INR 1.04 03/19/25 14:35
Lactic Acid Cancelled 03/19/25 15:45
C-Reactive Protein 49.30 mg/L (0.0-10.00) H 03/19/25 11:43
Urine WBC 0-2 /HPF (0-5) 03/19/25 15:32
Ur Squamous Epith Cells 0-2 /LPF (Few) 03/19/25 15:32
Microbiology Results
Micro:
03/19/25 11:43 Wound Culture - Preliminary
Foot - Right S aureus-Methicillin Sensitive
Klebsiella oxytoca
Haemophilus parainfluenzae
Gram negative bacilli
Gram Stain - Preliminary
03/19/25 11:43 Blood Culture - Preliminary
Blood/Venous No Growth in 48 hours- Final report to follow
03/19/25 11:43 Blood Culture - Preliminary
Blood/Venous No Growth in 48 hours- Final report to follow
Assessment / Plan
#Right foot cellulitis with concern for underlying osteomyelitis
#Elevated CRP
Prior to admission:
#Hypertension
#Hyperlipidemia
#Renal calculi
#Anxiety/depression
#Bipolar disorder
#Active smoker
#Alcohol use disorder
#Prediabetes
Recommendations:
Right foot cellulitis with concern for osteomyelitis
--Wound culture on 03/19/2025 revealed Staph aureus�methicillin sensitive bacteria, Klebsiella oxytoca, haemophilus parainfluenza, gram-negative bacilli
--Suspect haemophilus parainfluenza may be a contaminant. He is pre-diabetic which increases the risk for G (-) bacilli
--Discontinue vancomycin and continue Zosyn for staph and gram-negative coverage
--Await MRI results to guide further treatment/surgical interventions
[2025-03-22 12:35] LABS: Glucose - Point of Care 100 mg/dl (70-99)
--- NOTE | 2025-03-22 13:00 | PTCARENOTE ---
03/22/2025 DIABETES EDUCATION CONSULT
Met with Mr. Vigil, KAILYN Al great toe infection. Has diagnosis of prediabetes, states his HbA1c is 6.4%. I provided education that an HbA1c of 6.5%+ is a diagnosis of diabetes, discussed complications of DM such as infections not healing well,
possible amputation, CVA, OK, vision and kidney problems. Also discussed benefits of water intake (avoid juice and soda), and exercise. He verbalized understanding, states his girlfriend has been discussing this with him at length. Provided
information on prediabetes class.
--- NOTE | 2025-03-22 14:37 | CM ---
Addendum entered by Simin Templeton 03/22/25 15:39:
Genie from the billing department spoke with pt today about options for medical assistance. His income is currently over the limit to apply for Medicaid.
Original Note:
Pt had several studies today and is waiting for the results to make a decision about the need for surgery vs. ABX therapy. Continues on IV ABX at this time. Will follow for dc needs
Plan: TBD
[2025-03-22 15:00] VITALS: BP 146/96
--- NOTE | 2025-03-22 16:39 | W.PN.UPDATE ---
Update Note
Progress Note Update
49M Right hallux wound with underlying OM
- plan for OR tomorrow, Right hallux amputation
-- NPO at midnight tonight
- Discussed MRI and ROSEMARIE studies with patient to his satisfaction with all questions answered. Following up on discussion from Saturday patient wishes to pursue hallux amputation.
-- Discussed following up with Vascular specialist due to history of smoking and amputation
-Heel WB in Darco Wedge surgical shoe
- elevate RLE while at rest
- LWC : betadine dsd, mariluz
- continue IV abx
- Will continue to monitor in periop period
[2025-03-22 16:43] LABS: Glucose - Point of Care 100 mg/dl (70-99)
[2025-03-22] MEDS: LOVENOX 40 MG SC (16:59)
[2025-03-22] MEDS: SEROQUEL 50 MG PO (23:17)
[2025-03-22] MEDS: VITAMIN B1 100 MG PO (23:17)
[2025-03-22 23:48] LABS: Glucose - Point of Care 93 mg/dl (70-99)
[2025-03-22 23:53] VITALS: BP 144/93
[2025-03-23] VITALS (10 sets, daily range): BP systolic 121–146; BP diastolic 81–95
[2025-03-23 05:51] LABS: Glucose - Point of Care 91 mg/dl (70-99)
[2025-03-23] MEDS: ZOSYN 50 IV ×4 (05:54→23:00)
[2025-03-23] MEDS: ZOLOFT 50 MG PO (07:54)
[2025-03-23] MEDS: LAMICTAL 150 MG PO (07:54)
[2025-03-23] MEDS: FOLVITE 1 MG PO (07:54)
[2025-03-23] MEDS: VITAMIN B1 100 MG PO ×2 (07:54→19:26)
--- NOTE | 2025-03-23 08:28 | W.PN.HOSP.TC ---
Today's Communication/Plan
-
for OR today
await ID
Assessment / Plan
Assessment / Plan
Pt is a 49 year old male
Right foot great toe cellulitis/soft tissue infection/osteomyelitis---MRI with large plantar wound (POA), acute osteomyelitis, acute septic arthitis if interphalangeal great toe joint, septic tenosynovitis--wound culture with MSSA, Kleb oxytoca, and
H. parainfluenza, and a gm neg bacilli---await ID--apprec podiatry, for OR today--patient apparently had an open wound and went swimming in pond earlier in the month-- Currently on empiric vancomycin and Zosyn
Prediabetes -hemoglobin A1c 6. Has been diagnosed earlier in the month, patient motivated to control blood glucose. Diabetes education ordered. BG in 90-150 range currently.
Ruled out peripheral arterial disease -patient is active smoker--Arterial Doppler/ROSEMARIE show no circulation issues
Tobacco use -smokes 1 pack a day. Nicotine patch/gums ordered--needs to quit
Alcohol use disorder -3-4 alcohol drinks every day. Last drink day before admission night. MSAS/Ativan protocol ordered--no signs of DTs--needs to quit
Marijuana use -urine drug screen positive.
Mood disorder/bipolar? disorder -patient very pleasant no behavioral issues reported. Maintain on home dose of Lamictal/Seroquel/sertraline
DVT proph
code status--Full code
Anticipated Discharge: 24 - 48 hours
Subjective/Interval History
-
Date of Service: March 23, 2025
pt waiting for surgery
Objective Data
-
Labs:
Laboratory Results
03/23/25
08:09
WBC Pending
Hgb Pending
Hct Pending
Plt Count Pending
Sodium Pending
Potassium Pending
Chloride Pending
Carbon Dioxide Pending
BUN Pending
Creatinine Pending
Glucose Pending
Calcium Pending
Vital Signs:
max temp for 24 hours
03/22/25
15:00
Temp 98.8 F
Vital Signs
Temp Pulse Resp BP Pulse Ox
97.6 F 53 18 144/93 95
03/22/25 23:53 03/22/25 23:53 03/22/25 23:53 03/22/25 23:53 03/22/25 23:53
I&O
03/22/25 03/23/25 03/24/25
06:59 06:59 06:59
Intake Total 580 / 580 730 / 730
Output Total 240 / 240
Balance 340 / 340 730 / 730
Review of Systems
-
All other systems: Reviewed and negative
Physical Exam
-
General: Well Developed, Well Nourished and No Apparent Distress
HEENT: Normocephalic and Atraumatic
Respiratory: Clear to Auscultation; Negative Wheezes or Rhonchi
Cardiac: Regular Rhythm and S1/S2; Negative Murmur
GI: Soft, Nontender, Nondistended and Normal Bowel Sounds
Musculoskeletal: No Clubbing, No Cyanosis, No Edema and Other (toe/foot mariluz wrapped )
Neuro: Awake
Psych: Calm
[2025-03-23 08:44] LABS: Hematocrit 45.2 % (39.0-52.0); Hemoglobin 14.8 g/dL (13.0-18.0); Mean Corp Hgb Conc. 32.7 g/dL (33.0-37.0); Mean Corpuscular Volume 90.2 fL (80.0-94.0); Platelet Count 305 10^3/uL (130-400); Red Cell Dist. Width 13.3 % (11.5-14.5)
[2025-03-23 09:25] LABS: Blood Urea Nitrogen 14 mg/dl (9-20); Calcium 9.7 mg/dl (8.4-10.2); Carbon Dioxide 23 mmol/L (22-30); Chloride 105 mmol/L (98-107); Estimated Creatinine Clearance > 125 ml/min; Glucose 90 mg/dl (70-99); Magnesium 2.2 mg/dl (1.6-2.3); Potassium 4.8 mmol/L (3.5-5.1); Sodium 136 mmol/L (135-145); eGFR > 60.00
--- NOTE | 2025-03-23 10:06 | W.PN.ID1 ---
Date of Service
Date of Service: March 23, 2025
Today's Communication
Continue Zosyn.
See below.
Assessment / Plan
#Right hallux acute osteo
# Right foot cellulitis
# Tobacco use disorder
# Prediabetes A1c 6.1
Prior to admission:
#Hypertension
#Hyperlipidemia
#Renal calculi
#Anxiety/depression
#Bipolar disorder
#Active smoker
#Alcohol use disorder
#Prediabetes
Recommendations:
- MRI + osteomyelitis
-Wound swab culture on 03/19/2025 revealed Staph aureus�methicillin sensitive bacteria, Klebsiella oxytoca, haemophilus parainfluenza, gram-negative bacilli
- Toe amputation today for surgical cure.
- Continue Zosyn for now.
- Will transition to po abx post-op.
- Discussed benefits of smoking cessation
- Recommend tight glucose control.
Chief Complaint
-: Other (Toe osteo)
Subjective / Review of Systems
To OR today. No complaints.
Vital Signs / Physical Exam
Vital Signs
Vital Signs
Temp Pulse Resp BP Pulse Ox
98.5 F 64 18 134/90 98
03/23/25 07:30 03/23/25 07:30 03/23/25 07:30 03/23/25 07:30 03/23/25 09:30
Physical Exam
Constitutional: No Acute Distress and Comfortable
Cardiovascular: Regular Rate and S1/S2
Pulmonary: Clear
Gastrointestinal: Soft, Non Tender, Non Distended and Normal Bowel Sounds
Genito-Urinary: Negative CVA Tenderness
Extremities: Erythema (R forefoot erythema decreased); Negative Edema
Wound: Other (R hallux dressing dry)
Objective Data
Lab Data
Lab Results
03/23/25 08:09
03/23/25 08:09
ESR 15 mm/hour (0-20) 03/19/25 11:43
PT 13.7 Sec (11.4-14.6) 03/19/25 14:35
INR 1.04 03/19/25 14:35
APTT 30.3 Sec (23.4-35.0) 03/19/25 14:35
Estimated Creat Clear > 125 ml/min 03/23/25 08:09
Lactic Acid Cancelled 03/19/25 15:45
Total Bilirubin 0.8 mg/dl (0.2-1.3) 03/21/25 07:47
GGT 87 U/L (15-73) H 03/19/25 14:35
AST 23 U/L (17-59) 03/21/25 07:47
ALT 21 U/L (0-50) 03/21/25 07:47
Alkaline Phosphatase 73 U/L (38-126) 03/21/25 07:47
C-Reactive Protein 49.30 mg/L (0.0-10.00) H 03/19/25 11:43
Most recent labs reviewed.
Micro Results:
03/19/25 11:43 Wound Culture - Preliminary
Foot - Right S aureus-Methicillin Sensitive
Klebsiella oxytoca
Haemophilus parainfluenzae
Gram negative bacilli
Gram Stain - Preliminary
03/19/25 11:43 Blood Culture - Preliminary
Blood/Venous No Growth in 72 hours- Final report to follow
03/19/25 11:43 Blood Culture - Preliminary
Blood/Venous No Growth in 72 hours- Final report to follow
03/23/25 RLE MRI: 1. LARGE WOUND PLANTAR to the DISTAL PHALANX of the great toe.
2. ACUTE OSTEOMYELITIS in the distal and proximal phalanges of the GREAT TOE.
3. Acute septic arthritis of the interphalangeal joint of the great toe.
4. Mild septic tenosynovitis around the flexor hallucis longus tendon.
5. Acute cellulitis throughout the great toe.
[2025-03-23 12:01] LABS: Glucose - Point of Care 98 mg/dl (70-99)
--- NOTE | 2025-03-23 14:52 | CM ---
Patient for surgery today. CM will continue to follow for discharge planning needs. CM will continue to follow for discharge planning needs.
Plan; home with wound care vs VN
--- NOTE | 2025-03-23 16:52 | W.PN.UPDATE ---
Update Note
Progress Note Update
49M s/p right partial hallux amputation
- Presumed surgical cure of OM
-- wound cx x1, bone path x2 (clean margin, dirty)
-- appreciate ID recommendations
- Partial weight bearing to right heel in darco wedge shoe starting tomorrow morning
- elevate extremity 2-3 pillows
- postop analgesia
- will reassess on AM rounds
--- NOTE | 2025-03-23 17:29 | PTCARENOTE ---
Assumed care of patient at 3pm. No changes noted in assessment.
[2025-03-23] MEDS: LOVENOX 40 MG SC (17:36)
[2025-03-23 17:43] LABS: Glucose - Point of Care 103 mg/dl (70-99)
--- NOTE | 2025-03-23 18:22 | PTCARENOTE ---
Patient returned from OR in bed with no complaints of pain. Reports + sensation. Elevated foot on pillows. Call cole within reach.
[2025-03-23 21:28] LABS: Glucose - Point of Care 117 mg/dl (70-99)
[2025-03-23] MEDS: TYLENOL 650 MG PO (22:54)
[2025-03-23] MEDS: SEROQUEL 50 MG PO (22:54)
[2025-03-24 03:40] VITALS: BP 125/84
[2025-03-24] MEDS: ZOSYN 50 IV (05:51)
[2025-03-24] MEDS: TYLENOL 650 MG PO ×2 (05:56→11:46)
[2025-03-24 07:00] VITALS: BP 134/86
[2025-03-24 07:22] LABS: Glucose - Point of Care 109 mg/dl (70-99)
--- NOTE | 2025-03-24 07:31 | W.PN.UPDATE ---
Update Note
Progress Note Update
49M s/p right partial hallux amputation. dressings c/d/i. motor function intact to lesser toes. sensation at baseline. cft wnl
- Presumed surgical cure of OM
-- wound cx x1, bone path x2 (clean margin, dirty)
-- appreciate ID recommendations
- Partial weight bearing to right heel in darco wedge shoe
- elevate extremity 2-3 pillows
- postop analgesia
- patient may follow up in office with myself or Dr. Booker
[2025-03-24] MEDS: LAMICTAL 150 MG PO (08:15)
[2025-03-24] MEDS: FOLVITE 1 MG PO (08:15)
[2025-03-24] MEDS: VITAMIN B1 100 MG PO (08:15)
[2025-03-24] MEDS: ZOLOFT 50 MG PO (08:15)
[2025-03-24 08:23] LABS: Hematocrit 43.1 % (39.0-52.0); Hemoglobin 14.4 g/dL (13.0-18.0); Mean Corp Hgb Conc. 33.4 g/dL (33.0-37.0); Mean Corpuscular Volume 89.0 fL (80.0-94.0); Platelet Count 298 10^3/uL (130-400); Red Cell Dist. Width 13.2 % (11.5-14.5)
[2025-03-24 09:20] LABS: Blood Urea Nitrogen 14 mg/dl (9-20); Calcium 9.5 mg/dl (8.4-10.2); Carbon Dioxide 21 mmol/L (22-30); Chloride 102 mmol/L (98-107); Estimated Creatinine Clearance 114 ml/min; Glucose 94 mg/dl (70-99); Magnesium 2.2 mg/dl (1.6-2.3); Potassium 4.6 mmol/L (3.5-5.1); Sodium 134 mmol/L (135-145); eGFR > 60.00
--- NOTE | 2025-03-24 10:46 | W.PN.ID1 ---
Date of Service
Date of Service: March 24, 2025
Today's Communication
transition to Bactrim DS 1 tab po bid x 10d.
Assessment / Plan
#Right hallux acute osteo
# Right foot cellulitis
# Tobacco use disorder
# Prediabetes A1c 6.1
Prior to admission:
#Hypertension
#Hyperlipidemia
#Renal calculi
#Anxiety/depression
#Bipolar disorder
#Active smoker
#Alcohol use disorder
#Prediabetes
Recommendations:
- MRI + osteomyelitis
-Wound swab culture on 03/19/2025 revealed Staph aureus�methicillin sensitive bacteria, Klebsiella oxytoca, haemophilus parainfluenza, Alcaligenes
- 03/23 s/p R hallux partial amputation - surgical cure.
- DC Zosyn
-transition to Bactrim DS 1 tab po bid x 10d.
- Discussed benefits of smoking cessation
- Recommend tight glucose control.
Chief Complaint
-: Other (Toe osteo)
Subjective / Review of Systems
No complaints.
Vital Signs / Physical Exam
Vital Signs
Vital Signs
Temp Pulse Resp BP Pulse Ox
98.4 F 57 16 134/86 98
03/24/25 07:00 03/24/25 07:00 03/24/25 07:00 03/24/25 07:00 03/24/25 08:18
Physical Exam
Constitutional: No Acute Distress and Comfortable
Cardiovascular: Regular Rate and S1/S2
Pulmonary: Clear
Gastrointestinal: Soft, Non Tender, Non Distended and Normal Bowel Sounds
Genito-Urinary: Negative CVA Tenderness
Extremities: Erythema (R forefoot erythema decreased); Negative Edema
Wound: Other (Right foot dressing dry.)
Objective Data
Lab Data
Lab Results
03/24/25 07:45
03/24/25 07:45
ESR 15 mm/hour (0-20) 03/19/25 11:43
PT 13.7 Sec (11.4-14.6) 03/19/25 14:35
INR 1.04 03/19/25 14:35
APTT 30.3 Sec (23.4-35.0) 03/19/25 14:35
Estimated Creat Clear 114 ml/min 03/24/25 07:45
Lactic Acid Cancelled 03/19/25 15:45
Total Bilirubin 0.8 mg/dl (0.2-1.3) 03/21/25 07:47
GGT 87 U/L (15-73) H 03/19/25 14:35
AST 23 U/L (17-59) 03/21/25 07:47
ALT 21 U/L (0-50) 03/21/25 07:47
Alkaline Phosphatase 73 U/L (38-126) 03/21/25 07:47
C-Reactive Protein 49.30 mg/L (0.0-10.00) H 03/19/25 11:43
Most recent labs reviewed.
Micro Results:
03/19/25 11:43 Wound Culture - Final
Foot - Right S aureus-Methicillin Sensitive
Klebsiella oxytoca
Alcaligenes Faecalis
Haemophilus parainfluenzae
Gram Stain - Final
03/23/25 16:43 Wound Culture - Pending
Toe Gram Stain - Preliminary
03/23/25 16:43 Anaerobic Culture - Pending
Toe
03/19/25 11:43 Blood Culture - Preliminary
Blood/Venous No Growth in 4 days- Final report to follow
03/19/25 11:43 Blood Culture - Preliminary
Blood/Venous No Growth in 4 days- Final report to follow
03/23/25 RLE MRI: 1. LARGE WOUND PLANTAR to the DISTAL PHALANX of the great toe.
2. ACUTE OSTEOMYELITIS in the distal and proximal phalanges of the GREAT TOE.
3. Acute septic arthritis of the interphalangeal joint of the great toe.
4. Mild septic tenosynovitis around the flexor hallucis longus tendon.
5. Acute cellulitis throughout the great toe.
Care Review
Plan reviewed with: Physician (Dr. Marie)
[2025-03-24 11:00] VITALS: BP 143/90
[2025-03-24] MEDS: BACTRIM DS 800 MG/160 MG 1 TABLET PO (11:35)
[2025-03-24 11:50] LABS: Glucose - Point of Care 113 mg/dl (70-99)
[2025-03-24 12:19] VITALS: BP 146/92; PULSE 60; O2SAT 95
[2025-03-24 12:20] VITALS: BP 146/92; PULSE 61; O2SAT 95
--- NOTE | 2025-03-24 13:31 | W.PN.HOSP.TC ---
Today's Communication/Plan
-
d/c
Assessment / Plan
Assessment / Plan
Pt is a 49 year old male
Right foot great toe cellulitis/soft tissue infection/osteomyelitis---MRI with large plantar wound (POA), acute osteomyelitis, acute septic arthitis if interphalangeal great toe joint, septic tenosynovitis--wound culture with MSSA, Kleb oxytoca, and
H. parainfluenza, and Alcaligenes Faecalis---apprec ID, transition to Bactrim DS--apprec podiatry, s/p OR 03/23--patient apparently had an open wound and went swimming in pond earlier in the month--
Prediabetes -hemoglobin A1c 6. Has been diagnosed earlier in the month, patient motivated to control blood glucose. Diabetes education ordered. BG in 90-150 range currently.
Ruled out peripheral arterial disease -patient is active smoker--Arterial Doppler/ROSEMARIE show no circulation issues
Tobacco use -smokes 1 pack a day. Nicotine patch/gums ordered--needs to quit
Alcohol use disorder -3-4 alcohol drinks every day. Last drink day before admission night. MSAS/Ativan protocol ordered--no signs of DTs--needs to quit
Marijuana use -urine drug screen positive.
Mood disorder/bipolar? disorder -patient very pleasant no behavioral issues reported. Maintain on home dose of Lamictal/Seroquel/sertraline
DVT proph
code status--Full code
Anticipated Discharge: Today
Subjective/Interval History
-
Date of Service: March 24, 2025
pt ready for d/c
Objective Data
-
Labs:
Laboratory Results
03/24/25
07:45
WBC 9.9
Hgb 14.4
Hct 43.1
Plt Count 298
Sodium 134 L
Potassium 4.6
Chloride 102
Carbon Dioxide 21 L
BUN 14
Creatinine 1.0
Glucose 94
Calcium 9.5
Vital Signs:
max temp for 24 hours
03/23/25
23:55
Temp 99 F
Vital Signs
Temp Pulse Resp BP Pulse Ox
98.5 F 58 16 143/90 96
03/24/25 11:00 03/24/25 11:00 03/24/25 11:00 03/24/25 11:00 03/24/25 11:00
I&O
03/23/25 03/24/25 03/25/25
06:59 06:59 06:59
Intake Total 730 / 730 2575 / 2575 840 / 840
Balance 730 / 730 2575 / 2575 840 / 840
Review of Systems
-
All other systems: Reviewed and negative
Physical Exam
-
General: Well Developed, Well Nourished and No Apparent Distress
HEENT: Normocephalic and Atraumatic
Respiratory: Clear to Auscultation; Negative Wheezes or Rhonchi
Cardiac: Regular Rhythm and S1/S2; Negative Murmur
GI: Soft, Nontender, Nondistended and Normal Bowel Sounds
Musculoskeletal: No Clubbing, No Cyanosis, No Edema and Other (right foot post op)
Neuro: Awake and Alert
--- NOTE | 2025-03-24 14:04 | CM ---
Patient seen at bedside with . Patient for discharge today. Patient present for discharge home. CM called to patient via phone and he indicated that he did not want VN services at this time patient to follow up with PCP and guest services. CM
will continue to follow for discharge planning needs.
Plan; home with family, follow up with PCP
--- NOTE | 2025-03-24 14:12 | PTOTSP ---
PATIENT S/P RIGHT GREAT TOE AMPUTATION 03/23 AND ALLOWED PARTIAL/HEEL WEIGHTBEARING IN DARCO WEDGE SHOE. PATIENT EDUCATED IN USE OF WEDGE SHOE WHENEVER OUT OF BED FOR PROTECTION WELL CLEANLINESS. PATIENT ABLE TO MOBILIZE INDEPENDENTLY WITHOUT
A DEVICE. WILL HAVE ASSIST FROM GIRLFRIEND AT HOME NEEDED. PATIENT TO DISCHARGE TO HOME TODAY AND HAD NO FURTHER QUESTIONS OR CONCERNS AT END OF SESSION.
--- NOTE | 2025-03-24 15:40 | W.DCSUMMARY ---
Discharge Summary
Discharge Data
Date of Admission: 03/19/25
Date of Discharge: 03/24/25
-
Pending Results: Yes
Additional Pending Results:
Results of toe amputation through pathology still pending
Hospital Course
Primary care physician : Asuncion Joseph
Principal Discharge diagnosis : Right great toe cellulitis/osteomyelitis/septic arthritis status post toe amputation 03/23/2025
Chronic Discharge diagnosis : Prediabetes, tobacco use, alcohol use disorder, marijuana use, mood disorder/questionable bipolar disorder
Hospital Course : Patient is a 49-year-old male with a history of anxiety/depression/bipolar disorder among other medical issues who had a open wound on his right toe for a few months. Patient reported jumping into a pond with a subsequent
infection of the right toe. He was prescribed doxycycline. He was following with Dr. Stevie Booker who performed wound culture. 5 days prior to admission he presented with redness swelling and drainage. He denied any fevers or chills. Patient
was admitted.
Problem #1: Right great toe cellulitis/osteomyelitis/septic arthritis status post toe amputation 03/23/2025. Patient was admitted and seen in consultation by podiatry (Dr. Dontae Ceja). Patient was started on empiric vancomycin and Zosyn.
Wound culture showed methicillin sensitive Staphylococcus aureus, Klebsiella oxytoca, haemophilus parainfluenza, and Alcaligenes faecalis. Patient was seen in consultation by infectious disease. Patient had MRI of the foot done which showed a
large wound on the plantar aspect of the distal phalanx of the great toe, acute osteomyelitis of the distal and proximal phalanges of the great toe, acute septic arthritis of the interphalangeal joint of the great toe, mild septic tenosynovitis
around the flexor houses longus tendon, acute cellulitis of the great toe. Decision was made to take the patient to the operating room and do toe amputation which was done on March 23, 2025. Results of the toe amputation are pending at this
time. Patient has been cleared for discharge by podiatry and has been converted to oral antibiotics by infectious disease. Arterial brachial indices were done which did not show any compromise of circulation in both the right or left leg.
Problem #2: All other medical issues. These include Prediabetes, tobacco use, alcohol use disorder, marijuana use, mood disorder/questionable bipolar disorder. These medical issues were stable during his hospitalization. Medications were
continued as able. There were no signs of any alcohol withdrawal or delirium tremens.
Patient is stable for discharge home at this time with appropriate follow-up. If there are any questions regarding this dictation or his hospital stay, please do not hesitate to call. Our office number is [phone].
Time for discharge 35 minutes.
Important imaging findings :
MRI IMPRESSION:
1. LARGE WOUND PLANTAR to the DISTAL PHALANX of the great toe.
2. ACUTE OSTEOMYELITIS in the distal and proximal phalanges of the GREAT TOE.
3. Acute septic arthritis of the interphalangeal joint of the great toe.
4. Mild septic tenosynovitis around the flexor hallucis longus tendon.
5. Acute cellulitis throughout the great toe.
6. Diffuse acute on chronic muscle denervation throughout the right foot.
7. Mild polyarticular arthritis in the midfoot.
8. Acute on chronic plantar fasciitis.
Procedure findings :
SURGEON: Stevie Booker DPM
DICTATED BY: Stevie Booker DPM
HEALTHCARE ECONOMICS CONSULTANT: Dontae Ceja DPM
PREOPERATIVE DIAGNOSIS: Right hallux osteomyelitis and septic
arthritis.
POSTOPERATIVE DIAGNOSIS: Right hallux osteoarthritis and septic
arthritis.
PATHOLOGY: Right hallux pathology and cultures and right hallux
clearing margin.
ANESTHESIA: Monitored anesthesia care.
HEMOSTASIS: Anatomic dissection and electrocautery.
ESTIMATED BLOOD LOSS: Minimal.
MATERIALS USED: 3-0 Vicryl, 3-0 Prolene.
INJECTABLES: 15 mL 0.5% Marcaine plain.
COMPLICATIONS: No apparent complications.
Discharge Plan
-
Patient Disposition: Home with Home Care
Discharge Diagnosis/Procedures: Right foot great toe cellulitis/osteomyelitis/septic arthritis, prediabetes, tobacco use, alcohol use disorder, marijuana use, mood disorder/questionable bipolar
Condition: Good
Diet: Diabetic, Carb Controlled
Additional Activity: Partial weightbearing to the right heel in Darco wedge shoe, elevate extremity on 2-3 pillows
Driving Restrictions: No driving
Bathing Restrictions: As per orthopedics
Other Services: VN
Activity Restrictions/Additional Instructions:
call your side stitching machine operator for a post op appointment
Referrals:
Stevie Booker DPM [Active, Podiatry] - As needed
Referral Note: As directed
Asuncion Joseph MD [Family Provider, Internal Medicine] - in less than 1 week
Prescriptions:
New
sulfamethoxazole-trimethoprim 800-160 mg Tablet
1 tab PO BID 10 Days Qty: 20 0RF
acetaminophen 325 mg Tablet
650 mg PO Q4HPRN PRN (Reason: mild pain/MEZA/temp> 100.4F) Qty: 0 0RF
folic acid 1 mg Tablet
1 mg PO DAILY Qty: 0 0RF
thiamine mononitrate (vit B1) 100 mg Tablet
100 mg PO BID Qty: 0 0RF
naproxen sodium [Aleve] 220 mg tablet
220 mg PO Q12H PRN (Reason: pain) Qty: 1 0RF
Continued
lamotrigine 150 mg Tablet
150 mg PO DAILY
sertraline 50 mg Tablet
50 mg PO DAILY
quetiapine 50 mg Tablet
50 mg PO HS
Discontinued
naproxen sodium [Aleve] 220 mg Tablet
220 mg PO BID PRN (Reason: mild pain)
Discharge Orders:
Discharge Patient (As Directed); Ordered 03/24/25
Ordered By: Vicki Marie
Discharge Date and Time
Discharge Date/Time: 03/24/25 14:42
Print Language: PAKIST[place]
== END 2025-03-24 14:42 | disposition home or self-care (01) | DRG 504 ==
LOC: 4 EAST ACU 13:21
PROVIDERS: Clinical Nurse Specialist Family Health; Student in an Organized Health Care Education/Training Program; ADMITTING PHYSICIAN Hospitalist; ATTENDING PHYSICIAN Internal Medicine; CONSULT PHYSICIAN Internal Medicine Infectious Disease; EMERGENCY PHYSICIAN Emergency Medicine; FAMILY PHYSICIAN Internal Medicine; OTHER PHYSICIAN Student in an Organized Health Care Education/Training Program
PROC: 0Y6P0Z0 Detachment at Right 1st Toe, Complete, Open Approach (ICD-10-PCS; 2025-03-23)
DX: M86.171 Other acute osteomyelitis, right ankle and foot (principal); M00.9 Pyogenic arthritis, unspecified; L03.031 Cellulitis of right toe; F31.9 Bipolar disorder, unspecified; F10.90 Alcohol use, unspecified, uncomplicated; F41.9 Anxiety disorder, unspecified; M65.971 Unspecified synovitis and tenosynovitis, right ankle and foot; M13.0 Polyarthritis, unspecified; M72.2 Plantar fascial fibromatosis; F17.210 Nicotine dependence, cigarettes, uncomplicated; I10 Essential (primary) hypertension; Z87.442 Personal history of urinary calculi; Z79.899 Other long term (current) drug therapy; Z82.49 Family history of ischemic heart disease and other diseases of the circulatory system
CPT/HCPCS: 73630; 73720; 80048; 80053; 80202; 80306; 81003; 81015; 82010; 82077; 82962; 82977; 83036; 83605; 83735; 84100; 85025; 85027; 85610; 85652; 85730; 86140; 87040; 87070; 87075; 87077; 87147; 87185; 87186; 87205; 88304; 88305; 88311; 93922; 93925; 96365; 96366; 96367; 97162; 97166; 99284; A9575